=== PATIENT | female | born 1940 | race Caucasian/White ===

== ENCOUNTER 2020-11-07 10:09 | Outpatient (REF) | payer MEDICARE, SELFPAY ==
[2020-11-07 10:46] LABS: MANUAL DIFF FLAG NO
[2020-11-07 11:13] LABS: Basophils Absolute Auto 0.1 X10*3/uL (0.0-0.2); Basophils Percent Auto 1.4 % (0-2); Eosinophils Absolute Auto 0.1 X10*3/uL (0.0-0.4); Eosinophils Percent Auto 2.9 % (0-4); Hematocrit 39.3 % (37-47); Hemoglobin 13.3 g/dl (12.0-16.0); Imm Gran Abs Auto 0.01 X10*3/uL (0.00-0.03); Imm Gran Pct Auto 0.2 % (0.0-0.4); Lymphocytes Absolute Auto 1.6 X10*3/uL (1.2-4.9); Mean Corpuscular HGB Conc 33.8 g/dl (31.0-35.0); Mean Corpuscular Hemoglobin 30.3 pg (27.0-33.0); Mean Corpuscular Volume 89.5 fL (80-98); Mean Platelet Volume 9.6 fL (9.4-12.3); Monocytes Absolute Auto 0.6 X10*3/uL (0.1-1.2); Monocytes Percent Auto 11.9 % (2-11); Neutrophils Absolute Auto 2.5 X10*3/uL (2.0-8.3); Neutrophils Percent Auto 50.6 % (45-73); Platelet Count 244 X10*3/uL (160-400); Red Blood Count 4.39 X10*6/uL (4.20-5.50); Red Cell Distribution Width 12.3 % (11.0-16.0); White Blood Count 4.9 X10*3/uL (4.8-10.8)
[2020-11-07 11:15] LABS: Estimated Average Glucose 134 mg/dL; Hemoglobin A1c % 6.3 %
[2020-11-07 11:23] LABS: Alanine Aminotransferase 15 U/L (0-31); Albumin Level 4.4 g/dL (3.5-5.0); Alkaline Phosphatase 76 U/L (39-117); Anion Gap 13 (12-20); Aspartate Amino Transferase 17 U/L (5-31); Bilirubin Total 1.7 mg/dL (0.0-1.0); Blood Urea Nitrogen 22 mg/dL (9-16); Calcium 10.1 mg/dL (8.4-10.2); Carbon Dioxide 29 mmol/L (22-29); Chloride 97 mmol/L (96-108); Cholesterol 175 mg/dL; Estimated Glomerular Filt Rate > 60; Glucose Fasting 124 mg/dL (60-99); HDL Cholesterol 80 mg/dL; LDL Cholesterol Calculated 82 mg/dl; Potassium 4.8 mmol/L (3.3-5.1); Sodium 134 mmol/L (135-145); Total Protein 6.6 g/dL (6.5-8.0); Triglycerides 69 mg/dL
[2020-11-07 11:41] LABS: Thyroid Stimulating Hormone 2.29 uIU/mL (0.32-4.0)
[2020-11-07 13:59] LABS: Creatinine Urine 69.79 mg/dL
== END 2020-11-07 10:10 | disposition home or self-care (01) ==
LOC: HO.LAB 10:09
PROVIDERS: Visit Provider Physician Assistant
DX: E11.9 Type 2 diabetes mellitus without complications (principal); I10 Essential (primary) hypertension; E03.9 Hypothyroidism, unspecified
CPT/HCPCS: 36415; 80053; 80061; 82043; 83036; 84443; 85025

== ENCOUNTER 2021-11-13 10:02 | Outpatient (REF) | payer MEDICARE, SELFPAY ==
[2021-11-13 10:47] LABS: Hematocrit 39.3 % (37.0-47.0); Hemoglobin 13.5 g/dl (12.0-16.0); Mean Corpuscular HGB Conc 34.4 g/dl (31.0-35.0); Mean Corpuscular Hemoglobin 30.5 pg (27.0-33.0); Mean Corpuscular Volume 88.7 fL (80.0-98.0); Mean Platelet Volume 9.7 fL (9.4-12.3); Platelet Count 272 X10*3/uL (160-400); Red Blood Count 4.43 X10*6/uL (4.20-5.50); Red Cell Distribution Width 12.1 % (11.0-16.0); White Blood Count 5.6 X10*3/uL (4.8-10.8)
[2021-11-13 11:00] LABS: Alanine Aminotransferase 18 U/L (0-31); Albumin Level 4.3 g/dL (3.5-5.0); Alkaline Phosphatase 73 U/L (39-117); Anion Gap 13 (12-20); Aspartate Amino Transferase 18 U/L (5-31); Bilirubin Total 1.4 mg/dL (0.0-1.0); Blood Urea Nitrogen 20 mg/dL (9-16); Carbon Dioxide 27 mmol/L (22-29); Chloride 98 mmol/L (96-108); Cholesterol 181 mg/dL; Estimated Glomerular Filt Rate > 60; Glucose Fasting 155 mg/dL (60-99); HDL Cholesterol 77 mg/dL; LDL Cholesterol Calculated 89 mg/dl; Potassium 4.5 mmol/L (3.3-5.1); Sodium 133 mmol/L (135-145); Total Protein 6.6 g/dL (6.5-8.0); Triglycerides 75 mg/dL
[2021-11-13 11:19] LABS: Estimated Average Glucose 146 mg/dL; Hemoglobin A1c % 6.7 %
[2021-11-13 14:26] LABS: Creatinine Urine 107.06 mg/dL; Microalbum/Creatinine Ratio Ur 7.4 ug/mg cr
== END 2021-11-13 10:03 | disposition home or self-care (01) ==
LOC: HO.LAB 10:02
PROVIDERS: PCP Physician Assistant; Visit Provider Physician Assistant
DX: E03.9 Hypothyroidism, unspecified (principal); E11.9 Type 2 diabetes mellitus without complications; I10 Essential (primary) hypertension
CPT/HCPCS: 36415; 80053; 80061; 82043; 83036; 84443; 85027

== ENCOUNTER 2021-12-18 21:40 | Emergency (ER) | payer MEDICARE, SELFPAY ==
--- NOTE | ~2021-12-18 | XR_ITS ---
EXAMINATION: LEFT SHOULDER, LEFT HUMERUS, LEFT FOREARM CLINICAL INFORMATION: Pain after fall with question of fracture or dislocation COMPARISON: None TECHNIQUE: 3 views left shoulder, 2 views left humerus, 3 views left forearm FINDINGS: Shoulder and humerus: Degenerative changes are present in the shoulder with some sclerosis subchondral cyst formation and joint space narrowing. There is a spiral fracture through the proximal one third of the humerus there is lateral and posterior angulation of the distal fracture fragment. Forearm: The radius and ulna appear normal. No fractures are seen. XR/XR forearm LT 2V IMPRESSION: Acute spiral fracture involving the proximal one third of the left humerus. No other fractures are seen. Degenerative changes present at the left glenohumeral joint
--- NOTE | ~2021-12-18 | CT_ITS ---
EXAMINATION: CT CHEST WITHOUT AND WITH CONTRAST CLINICAL INFORMATION: Incidental collection posterior to the esophagus questioned on CT cervical spine COMPARISON: None TECHNIQUE: Multidetector volumetric CT imaging of the chest was obtained before and after the administration of 65 mL of Omnipaque 350 intravenous contrast without immediate adverse reactions. Axial MIP volume rendering provided. Sagittal and coronal reformatted images were obtained. This CT examination was performed using dose optimization techniques as appropriate, variously including the following: *Automated exposure control *Adjustment of mA and/or kV according to patient size (this includes techniques or standardized protocols for targeted exams where dose is matched to indication/reason for exam; i.e. extremities or head) *Use of iterative reconstruction technique DLP: 543 mGy-cm FINDINGS: LUNGS: No appreciable emphysema. Diffuse mild bronchial thickening without bronchiectasis. There is an irregular branching opacity in the posterior segment of the right upper lobe with surrounding groundglass measuring up to 1.6 cm. There is a 0.8 cm groundglass nodule superior segment of the left lower lobe and a 1.6 cm groundglass nodule within the left upper lobe near the major fissure. There is a 5 mm pleural or subpleural nodule along the left lower lobe. An additional 1.0 cm groundglass nodule is present in the right upper lobe. Central airways are patent. MEDIASTINUM: As seen on the prior CT cervical spine, there is amorphous soft issue density posterior to the esophagus beginning at approximately C7 and extending inferiorly into the superior mediastinum. There is no associated peripheral enhancement. Within the lower cervical spine, this soft tissue is intimately associated with prominent endplate osteophytes at C6-C7. Normal heart size. No pericardial effusion. Triple vessel coronary calcifications. No mediastinal or hilar lymphadenopathy by size criteria. PLEURA: There is no pleural effusion. No pleural mass or thickening. AXILLA: No lymphadenopathy. UPPER ABDOMEN: Unremarkable. OSSEOUS STRUCTURES: Unremarkable. CT/CT chest wo/w con IMPRESSION: * As seen on the prior CT cervical spine, there is amorphous soft tissue density posterior to the lower cervical and upper mediastinal esophagus of unclear etiology. Considerations might include neoplasm such as non-Hodgkin's lymphoma, or chronic scarring, perhaps related to a remote retropharyngeal infection. Alternatively, the finding may originate from the esophagus. It is possible there may be Zenker's diverticulum, or esophageal mass. Recommend esophagram for further evaluation. PET/CT may ultimately be indicated for further evaluation. * Multiple pulmonary nodules, largest being a part solid nodule in the right upper lobe measuring up to 1.6 cm. Appearance is concerning for early neoplasia such as minimally invasive adenocarcinoma. I mention this because there are multiple additional groundglass nodules scattered throughout both lungs, showing an appearance typical for atypical adenomatous hyperplasia. Consider CT-guided lung biopsy of the nodule in the posterior segment of the right upper lobe. Fleischner guidelines were followed.
--- NOTE | ~2021-12-18 | CT_ITS ---
EXAMINATION: CT HEAD WITHOUT CONTRAST CT CERVICAL SPINE WITHOUT CONTRAST CLINICAL INFORMATION: Fall. Mild head and neck pain. COMPARISON: None available. TECHNIQUE: Contiguous axial imaging was performed from the skull base to vertex without intravenous administration of contrast. Contiguous axial imaging was performed from the upper chest through the skull base without intravenous administration of contrast. Coronal and sagittal reformats were obtained at the acquisition workstation. This CT examination was performed using dose optimization techniques as appropriate, variously including the following: *Automated exposure control. *Adjustment of mA and/or kV according to patient size (this includes techniques or standardized protocols for targeted exams where dose is matched to indication/reason for exam; i.e. extremities or head). *Use of iterative reconstruction technique. DLP: 914 mGy-cm FINDINGS: Head: There is no evidence of acute intracranial hemorrhage or edematous territorial infarction. Scattered hypoattenuation in the periventricular and deep white matter are consistent with moderate microangiopathy. Jolley-white matter differentiation is preserved. Proportional prominence of the ventricles and sulcal spaces. No evidence for obstructive hydrocephalus. No abnormal mass effect or midline shift. No extra-axial fluid collections. Moderate subgaleal hematoma along the right aspect of the frontal bone extending into the right paravertebral soft tissues, measuring up to 0.7 cm in depth. No associated osseous abnormalities. No radiopaque foreign bodies. Mild mucosal thickening of the paranasal sinuses. The mastoid air cells and middle ear cavities are clear. Left-sided stapedoplasty. No additional demonstrated abnormalities of the orbits on limited evaluation. Cervical Spine: The atlantooccipital and atlantoaxial articulations remain well aligned. Straightening of the normal cervical lordosis. Mild degenerative anterolisthesis of C3 on C4, C5 on C6, and C6 on C7. Otherwise, there is anatomic alignment of the vertebral bodies and posterior elements. There is fusion of the C4-C5 facets. No evidence of acute fracture or subluxation. The vertebral body heights are maintained. Moderate degenerative disc disease at C3-C4, C4-C5, C6-C7, and C7-T1. Facet and uncovertebral joint arthropathy leads osseous encroachment on the neural foramina from C2-C4 and C5-T1. There is no prevertebral soft tissue swelling. There appears to be a ovoid collection/lesion posterior to the esophagus extending from the level of C6-T2, measuring 2.3 x 1.6 x (at least) 5.1 cm and up to 30 Hounsfield units. This structure extends inferior to the [id number] of this exam. Otherwise, the thyroid gland and remaining cervical soft tissues are normal in appearance. The lung apices demonstrate no abnormalities. CT/CT cervical spine wo con IMPRESSION: 1. No evidence of acute intracranial hemorrhage or edematous territorial infarction. Moderate underlying microangiopathy and generalized cerebral volume loss. 2. No evidence of acute fracture or traumatic subluxation of the cervical spine. Moderate multilevel degenerative spondyloarthropathy of the cervical spine. 3. Right frontal scalp and periorbital hematoma without associated osseous abnormalities. 4. There appears to be an ovoid collection/lesion posterior to the esophagus centered at the thoracic inlet and visualized portions of the upper mediastinum. Recommend further characterization with contrast-enhanced CT of the chest. This critical result was discussed with Dr. Meyer at 23:21 on 12/18/2021 and it was ascertained that the content and urgency of the report was understood at the time of direct communication.
--- NOTE | ~2021-12-18 | XR_ITS ---
EXAMINATION: LEFT SHOULDER, LEFT HUMERUS, LEFT FOREARM CLINICAL INFORMATION: Pain after fall with question of fracture or dislocation COMPARISON: None TECHNIQUE: 3 views left shoulder, 2 views left humerus, 3 views left forearm FINDINGS: Shoulder and humerus: Degenerative changes are present in the shoulder with some sclerosis subchondral cyst formation and joint space narrowing. There is a spiral fracture through the proximal one third of the humerus there is lateral and posterior angulation of the distal fracture fragment. Forearm: The radius and ulna appear normal. No fractures are seen. XR/XR shoulder LT min 2V IMPRESSION: Acute spiral fracture involving the proximal one third of the left humerus. No other fractures are seen. Degenerative changes present at the left glenohumeral joint
--- NOTE | ~2021-12-18 | XR_ITS ---
EXAMINATION: LEFT SHOULDER, LEFT HUMERUS, LEFT FOREARM CLINICAL INFORMATION: Pain after fall with question of fracture or dislocation COMPARISON: None TECHNIQUE: 3 views left shoulder, 2 views left humerus, 3 views left forearm FINDINGS: Shoulder and humerus: Degenerative changes are present in the shoulder with some sclerosis subchondral cyst formation and joint space narrowing. There is a spiral fracture through the proximal one third of the humerus there is lateral and posterior angulation of the distal fracture fragment. Forearm: The radius and ulna appear normal. No fractures are seen. XR/XR humerus LT IMPRESSION: Acute spiral fracture involving the proximal one third of the left humerus. No other fractures are seen. Degenerative changes present at the left glenohumeral joint
[2021-12-18 21:48] VITALS: BP 138/80; BP 221/85; PULSE 78; PULSE 90; RESP 16; TEMP 36.9; O2SAT 100; O2SAT 97; BMI 30.8
[2021-12-18 21:55] LABS: Glucose, Whole Blood 190 mg/dL (60-115)
--- NOTE | 2021-12-18 22:07 | ED_ITS ---
HPI - Fall General Chief Complaint: Fall Stated Complaint: fall possible broken arm Time Seen by Provider: 12/18/21 21:57 Source: patient and EMS Mode of arrival: EMS Limitations: no limitations History of Present Illness HPI Narrative: Patient comes to emergency room complaining of left shoulder pain. Prior to ar ceci, patient states that she was trying to hop picker something from the floor in her closet, patient stepped backwards and there was a boxer IV hydrated. Patient fell backwards, hit her left shoulder in a piece of furniture, then hit her head in the corner of a dresser or a wall. Patient did not lose consciousness. Patient states that the pain in the left shoulder is very severe. EMS gave her 50 mcg of fentanyl, patient overall feeling better. Related Data Previous Rx's Medication Instructions Recorded hydrochlorothiazide 25 mg tablet 25 mg PO DAILY 90 days #90 tabs 04/10/21 levothyroxine 25 mcg tablet 25 mcg PO QAM #90 tabs 07/09/21 metformin 1,000 mg tablet 1,000 mg PO BID #180 tabs 07/09/21 metoprolol succinate 50 mg 50 mg PO DAILY #90 tabs 10/29/21 tablet,extended release 24 hr losartan 25 mg tablet 25 mg PO DAILY 90 days #90 tabs 11/20/21 tramadol 50 mg tablet 50 mg PO Q6H PRN pain #10 tabs 12/19/21 Allergies Allergy/AdvReac Type Severity Reaction Status Date / Time No Known Allergies Allergy Verified 11/20/21 11:38 Review of Systems Review of Systems: Constitutional : No Weight loss, No Fever, No Chills, No Night Sweats, No Fatigue, No Malaise ENT/Mouth : No Hearing loss, No Ear Pain, No Nasal Congestion, No Sinus Pain, No Hoarseness, No sore throat, No Rhinorrhea, No Swallowing Difficulty Eyes: No Eye Pain, No Swelling, No Redness, No Foreign Body, No Discharge, No Vision Changes Cardiovascular : No Chest Pain, No SOB, No Dyspnea on Exertion, No Orthopnea, No Edema, No Palpitations Respiratory : No Cough, No Sputum, No Wheezing, No Smoke Exposure, No Dyspnea Gastrointestinal : No Nausea, No Vomiting, No Diarrhea, No Constipation, No abdominal Pain, No Hematochezia, No Melena Genitourinary : no irregular bleeding, No Dysuria, No Urinary Frequency, No Hematuria, No Urinary Incontinence, No Urgency, No Flank Pain, No Urinary Flow Changes, No Hesitancy Musculoskeletal : Complaining of left shoulder and left humerus pain Skin : Complaining of ecchymosis above the right eye, no bleeding Neuro : No Weakness, No Numbness, No Paresthesias, No Loss of Consciousness, No Dizziness, No Headache Psych : No Anxiety/Panic, No Depression, No SI/HI/AH/VH, No Social Issues, Heme/Lymph: No Bruising, No Bleeding,No Lymphadenopathy Endocrine : No Polyuria, No Polydipsia, No Temperature Intolerance [facility] Past Medical History Surgical History History of total abdominal hysterectomy and bilateral salpingo-oophorectomy Family History Family History Father Medical history unknown Mother Medical history unknown Social History Social History Housing: House Alcohol intake: current Patient Tobacco Use Status: Former Tobacco user Tobacco use type: Cigarette Years Smoked: 7 e-Cigarette/Vaping Use: Never Used Advance Directives: No Advance Directives Information Provided: Yes Current occupational status: retired Cognitive needs: Yes (Pt has a cane and walker at home ) Hearing needs: Yes (Poor hearing loss. ) Vision needs: Yes (reading glasses) Physical Exam Vital Signs: Vital Signs: Last Vital Signs Temp 98.9 F 12/18/21 23:54 Pulse 71 12/19/21 01:12 Resp 16 12/19/21 01:12 BP 154/60 H 12/18/21 23:54 Pulse Ox 99 12/18/21 23:54 O2 Del Method 12/18/21 23:54 BMI result Body Mass Index 30.8 Course Course Course Narrative: Patient does have arrived left-sided humerus spiral fracture. The patient will be provided with a sling. I received a phone call from [facility], incidentally, on the neck CT scan, ovoid collections/lesions posterior to the esophagus were visualized. Contrast enhanced CT scan of the chest recommended. I discussed the CT findings with the patient, patient agreeable to labs and CT scan with contrast I discussed the fracture with Orthopedics, TYRON Akhtar, patient will be provided with a sling. I discussed case management/PT consult with the patient and her . At this time, they need a bit more time to decide. Patient has mild hyponatremia, patient being given IV fluids. Patient has no neurological symptoms. I discussed the chest CT with the patient and her and son. Patient will need follow-up with Gastroenterology and possibly pulmonology. Case Management/Physical therapy were offered. Patient prefers to go home and follow-up with orthopedics. Patient requested a prescription that is less strong and oxycodone. Tramadol has been sent to the patient's pharmacy MDM - Fall Lab Data Result diagrams: 12/19/21 00:04 12/19/21 00:04 Labs: Lab Results 12/18/21 12/19/21 12/19/21 Range/Units 21:50 00:04 00:04 WBC 14.0 H (4.8-10.8) X10*3/uL RBC 3.73 L (4.20-5.50) X10*6/uL Hgb 11.6 L (12.0-16.0) g/dl Hct 33.2 L (37.0-47.0) % MCV 89.0 (80.0-98.0) fL MCH 31.1 (27.0-33.0) pg MCHC 34.9 (31.0-35.0) g/dl RDW 12.1 (11.0-16.0) % Plt Count 225 (160-400) X10*3/uL MPV 9.3 L (9.4-12.3) fL Immature Gran % (Auto) 0.5 H (0.0-0.4) % Neut % (Auto) 83.9 H (45-73) % Lymph % (Auto) 7.9 L (20-40) % [place] % (Auto) 6.9 (2-11) % Eos % (Auto) 0.4 (0-4) % Baso % (Auto) 0.4 (0-2) % Lymph # (Auto) 1.1 L (1.2-4.9) X10*3/uL [place] # (Auto) 1.0 (0.1-1.2) X10*3/uL Eos # (Auto) 0.1 (0.0-0.4) X10*3/uL Baso # (Auto) 0.1 (0.0-0.2) X10*3/uL Abs Immat Gran (auto) 0.07 H (0.00-0.03) X10*3/uL Absolute Neuts (auto) 11.7 H (2.0-8.3) x10*3/uL Absolute Nucleated RBC 0.000 (0.0-0.012) X10*3/uL Nucleated RBC % (auto) 0.0 (0.0-0.2) /100WBC Sodium 129 L (135-145) mmol/L Potassium 4.2 (3.3-5.1) mmol/L Chloride 96 (96-108) mmol/L Carbon Dioxide 23 (22-29) mmol/L Anion Gap 14 (12-20) BUN 28 H (9-16) mg/dL Creatinine 0.94 (0.5-1.4) mg/dL Estim Creat Clear Calc 45.1 Estimated GFR 57 POC Glucose 190 H (60-115) mg/dL Random Glucose 244 H (60-115) mg/dL Calcium 9.2 D (8.4-10.2) mg/dL Total Bilirubin 1.0 (0.0-1.0) mg/dL Direct Bilirubin 0.4 (0.0-0.5) mg/dL AST 21 (5-31) U/L ALT 19 (0-31) U/L Alkaline Phosphatase 79 (39-117) U/L Total Protein 6.1 L (6.5-8.0) g/dL Albumin 4.1 (3.5-5.0) g/dL Discharge Plan Discharge Clinical Impression: Proximal humeral fracture Patient Disposition: Home, Self-Care Instructions: Arm Fracture in Adults (ED) Additional Instructions: Your CT scan of the chest shows a soft tissue density around your upper esophagus, etiology is unclear. Also, multiple pulmonary nodules were seen, unclear etiology. Please follow-up with your primary care physician tomorrow, you may need to be referred to Gastroenterology or pulmonology. . If you have any worsening or new symptoms, please return to the emergency room or call 911 Prescriptions: New tramadol 50 mg tablet 50 mg PO Q6H PRN (Reason: pain) Qty: 10 0RF No Action hydrochlorothiazide 25 mg tablet 25 mg PO DAILY 90 Days Qty: 90 2RF levothyroxine 25 mcg tablet 25 mcg PO QAM Qty: 90 1RF metformin 1,000 mg tablet 1,000 mg PO BID Qty: 180 1RF metoprolol succinate 50 mg tablet extended release 24 hr 50 mg PO DAILY Qty: 90 0RF losartan 25 mg tablet 25 mg PO DAILY 90 Days Qty: 90 1RF Referrals: Jamar Akhtar PA-C [Physician Front End Technician] - 1 day (Left humeral fracture)
[2021-12-18 22:50] VITALS: BP 152/92; PULSE 65; RESP 16; TEMP 37.1; O2SAT 98
[2021-12-18 23:54] VITALS: BP 154/60; PULSE 70; RESP 16; TEMP 37.2; O2SAT 99
[2021-12-19] MEDS: oxyCODONE HCl Immed Release 5 MG TABLET PO (00:01)
[2021-12-19 00:11] LABS: MANUAL DIFF FLAG NO
[2021-12-19 00:14] LABS: Basophils Absolute Auto 0.1 X10*3/uL (0.0-0.2); Basophils Percent Auto 0.4 % (0-2); Eosinophils Absolute Auto 0.1 X10*3/uL (0.0-0.4); Eosinophils Percent Auto 0.4 % (0-4); Hematocrit 33.2 % (37.0-47.0); Hemoglobin 11.6 g/dl (12.0-16.0); Imm Gran Abs Auto 0.07 X10*3/uL (0.00-0.03); Imm Gran Pct Auto 0.5 % (0.0-0.4); Lymphocytes Absolute Auto 1.1 X10*3/uL (1.2-4.9); Lymphocytes Percent Auto 7.9 % (20-40); Mean Corpuscular HGB Conc 34.9 g/dl (31.0-35.0); Mean Corpuscular Hemoglobin 31.1 pg (27.0-33.0); Mean Platelet Volume 9.3 fL (9.4-12.3); Monocytes Percent Auto 6.9 % (2-11); Neutrophils Absolute Auto 11.7 x10*3/uL (2.0-8.3); Neutrophils Percent Auto 83.9 % (45-73); Platelet Count 225 X10*3/uL (160-400); Red Blood Count 3.73 X10*6/uL (4.20-5.50); Red Cell Distribution Width 12.1 % (11.0-16.0)
[2021-12-19 00:30] LABS: Alanine Aminotransferase 19 U/L (0-31); Albumin Level 4.1 g/dL (3.5-5.0); Alkaline Phosphatase 79 U/L (39-117); Anion Gap 14 (12-20); Aspartate Amino Transferase 21 U/L (5-31); Bilirubin Direct 0.4 mg/dL (0.0-0.5); Blood Urea Nitrogen 28 mg/dL (9-16); Calcium 9.2 mg/dL (8.4-10.2); Carbon Dioxide 23 mmol/L (22-29); Chloride 96 mmol/L (96-108); Creatinine Clr Calc Pharmacy 45.1; Estimated Glomerular Filt Rate 57; Glucose Random 244 mg/dL (60-115); Potassium 4.2 mmol/L (3.3-5.1); Sodium 129 mmol/L (135-145); Total Protein 6.1 g/dL (6.5-8.0)
[2021-12-19] MEDS: iohexoL 300 MG/ML 100 ML INFUS..BTL 65 ML IV (01:04)
[2021-12-19] MEDS: 0.9 % Sodium Chloride 1,000 ML 999 ML IVCONT (01:10)
[2021-12-19 01:12] VITALS: PULSE 71; RESP 16
[2021-12-19 02:00] VITALS: BP 133/48; PULSE 66; RESP 16; TEMP 37.1; O2SAT 98
== END 2021-12-19 02:15 | disposition home or self-care (01) ==
PROVIDERS: Emergency Provider Emergency Medicine; PCP Physician Assistant
DX: S42.202A Unspecified fracture of upper end of left humerus, initial encounter for closed fracture (principal); E87.1 Hypo-osmolality and hyponatremia; R51.9 Headache, unspecified; M54.2 Cervicalgia; R93.89 Abnormal findings on diagnostic imaging of other specified body structures; W01.190A Fall on same level from slipping, tripping and stumbling with subsequent striking against furniture, initial encounter; Y93.9 Activity, unspecified; Y92.9 Unspecified place or not applicable; Y99.9 Unspecified external cause status
CPT/HCPCS: 36415; 70450; 71270; 72125; 73030; 73060; 73090; 80048; 80076; 82947; 85025; 96360; 99283; 99284; Q9967

== ENCOUNTER 2021-12-27 07:28 | Outpatient (REF) | payer MEDICARE, SELFPAY ==
--- NOTE | ~2021-12-27 | XR_ITS ---
EXAMINATION: XR HUMERUS, LEFT CLINICAL INFORMATION: Fracture shaft of humerus. Pain COMPARISON: 12/18/2021 left humerus. TECHNIQUE: AP and lateral views of the left humerus. FINDINGS: Undisplaced spiral fracture mid humerus. The displacement has improved since the last exam. No additional bony abnormality is seen. XR/XR humerus LT IMPRESSION: Some 1 to normal alignment of spinal fracture left mid humerus compared to previous study 12/18/2021.
== END 2021-12-27 07:29 | disposition home or self-care (01) ==
LOC: HO.HOSX 07:28
PROVIDERS: Visit Provider Physician Assistant
DX: S42.302A Unspecified fracture of shaft of humerus, left arm, initial encounter for closed fracture (principal)
CPT/HCPCS: 73060; 99202

== ENCOUNTER 2022-01-23 08:54 | Outpatient (REF) | payer MEDICARE, SELFPAY ==
--- NOTE | ~2022-01-23 | XR_ITS ---
EXAMINATION: XR HUMERUS, LEFT CLINICAL INFORMATION: Follow-up fracture. COMPARISON: Prior radiographs, most recently 12/27/2021. TECHNIQUE: AP and lateral views of the left humerus. FINDINGS: There is bony demineralization. There is a mildly displaced oblique fracture of the proximal to mid shaft of the left humerus, with approximately one quarter shaft width of medial displacement of the distal fracture fragment. There is minimal apex lateral angulation at the fracture site. There is good periosteal callus formation. No foreign body is seen. XR/XR humerus LT IMPRESSION: There is increased displacement and lateral angulation and oblique fracture of the proximal left humerus. There is good periosteal callus formation.
== END 2022-01-23 08:55 | disposition home or self-care (01) ==
LOC: HO.HOSX 08:54
PROVIDERS: Visit Provider Physician Assistant
DX: S42.302A Unspecified fracture of shaft of humerus, left arm, initial encounter for closed fracture (principal)
CPT/HCPCS: 73060; 99212

== ENCOUNTER 2022-02-27 08:40 | Outpatient (REF) | payer MEDICARE, SELFPAY ==
--- NOTE | ~2022-02-27 | XR_ITS ---
EXAMINATION: XR HUMERUS, LEFT CLINICAL INFORMATION: Fracture COMPARISON: Previous x-ray most recent 01/23/2022 TECHNIQUE: AP and lateral views of the left humerus. FINDINGS: There is an oblique minimally displaced fracture of the proximal shaft of the left humerus. Alignment appears unchanged. Fracture line is still seen. There is some increasing bony callus formation adjacent to the fracture. Joint spaces are normal. Soft tissues are normal. XR/XR humerus LT IMPRESSION: Healing left humeral shaft fracture.
== END 2022-02-27 08:41 | disposition home or self-care (01) ==
LOC: HO.HOSX 08:40
PROVIDERS: Visit Provider Physician Assistant
DX: S42.302D Unspecified fracture of shaft of humerus, left arm, subsequent encounter for fracture with routine healing (principal); X58.XXXD Exposure to other specified factors, subsequent encounter
CPT/HCPCS: 73060; 99212

== ENCOUNTER 2022-03-31 14:00 | Outpatient (RCR) | payer MEDICARE, SELFPAY ==
[2022-02-18 12:56] VITALS: BP 215/88; PULSE 78; O2SAT 100
--- NOTE | 2022-02-18 15:01 | MHC.PT.EP ---
[facility] [place] Office [place] Office [place] Office [address] Yoselin Penaloza [address] [phone] F: [phone] F: [phone] F: [phone] F: [phone] Physical Therapy Plan of Care Date of Evaluation: Date of Surgery: Diagnosis: FX LEFT HUMERUS- PT FOR GENTLE ROM Assessment: 81 YO FEMALE REF TO PT W H/O Lt HUMERAL SPIRAL FX SUSTAINED 12/18/21 AFTER SUFFERING A TRIP/FALL AT HOME. SHE IS Rt HAND DOMINANT AND RESIDES W HER SPOUSE. SHE HAS A LEFT HUMERAL BRACE/CUFF. Pt HAS LIMITED AROM/ ROM LEFT SH, GEN DECR STRENGTH IN Lt SH GIRDLE POST FX/ IMMOB, MILD PAIN IN LEFT PROX 1/3 HUMERUS, AND DECR ADL TOLERANCE. Pt WOULD BENEFIT FROM PT TO ADDRESS THE ABOVE FINDINGS AND DEV A PROGR HEP/ SELF-SX MGMT PROGRAM, AND GUIDE HER IN GRADUAL RETURN TO REG ADLs. Frequency and Duration: The patient will be seen 1 x WK x 6 WKS Short Term Goals: *INCREASE Pt'S LEFT SH AROM *INITIATE HEP FOR Lt SH GENTLE ROM *Pt'S Lt SH PAIN 2-3/10 AT MAX W ADLs *PT INDEP POSTURAL SELF- CORRECTION Pan Dumper Goals: *Pt DEMON WFL AROM Lt SH *Pt DEMON WFL STRENGTH IN Lt PROX UE AND Lt SCAP STAB (ONCE CLEARED BY ORTHO FOR STRENGTH) *Pt RESUME REG ADLs W Lt UE Treatment Plan: Modalities to reduce pain, spasms and effusion. Manual therapy to restore motion and function. Therapeutic exercise to improve strength and flexibility. Neuromuscular re-education for posture and balance. Therapeutic activities to return to functional activities of daily living. Electronically signed by: Allie Rios,PT Please sign and return to therapist. Thank you for your referral.
--- NOTE | 2022-04-24 14:37 | MHC.PT.DC ---
[facility] [place] Office [place] Office [place] Office [address] Yoselin Penaloza [address] [phone] F: [phone] F: [phone] F: [phone] F: [phone] Physical Therapy Discharge Report Diagnosis: FX LEFT HUMERUS- PT FOR GENTLE ROM Date of Surgery: Date of Evaluation: 02/18/22 Date of Discharge: 03/31/22 Treatments to Date: 7 Cancellations to Date: No Shows to Date: Discharge Status: Achieved Goals Improved Function Independent with HEP Discharge Summary: Pt PROGR VERY WELL, SHE HAS RESUMED HER REGULAR ADLs AND PERF PROGRESSIVE THER EXER W/O PAIN OR SXS IN LEFT PROXIMAL UE. Pt HAS MET HER PT GOALS AND SHE IS PLEASED W HER PROGRESS , EVIDENT W HER IMPROVED SPADI SCORE. Electronically signed by: Allie Rios,PT Please sign and return to therapist. Thank you for your referral.
== END 2022-04-24 14:39 | disposition home or self-care (01) ==
LOC: HO.PT 14:00
PROVIDERS: PCP Physician Assistant; Visit Provider Physician Assistant
DX: S42.302A Unspecified fracture of shaft of humerus, left arm, initial encounter for closed fracture (principal)
CPT/HCPCS: 97110; 97140; 97162

== ENCOUNTER 2022-11-19 10:24 | Outpatient (REF) | payer MEDICARE, SELFPAY ==
[2022-11-19 11:09] LABS: Hematocrit 43.2 % (37.0-47.0); Hemoglobin 14.8 g/dl (12.0-16.0); Mean Corpuscular HGB Conc 34.3 g/dl (31.0-35.0); Mean Corpuscular Volume 87.6 fL (80.0-98.0); Mean Platelet Volume 9.6 fL (9.4-12.3); Platelet Count 313 X10*3/uL (160-400); Red Blood Count 4.93 X10*6/uL (4.20-5.50); Red Cell Distribution Width 12.3 % (11.0-16.0); White Blood Count 8.8 X10*3/uL (4.8-10.8)
[2022-11-19 11:25] LABS: Estimated Average Glucose 157 mg/dL; Hemoglobin A1c % 7.1 %
[2022-11-19 12:15] LABS: Alanine Aminotransferase 25 U/L (0-31); Albumin Level 4.5 g/dL (3.5-5.0); Alkaline Phosphatase 85 U/L (39-117); Anion Gap 15 (12-20); Aspartate Amino Transferase 15 U/L (5-31); Bilirubin Total 2.7 mg/dL (0.0-1.0); Blood Urea Nitrogen 24 mg/dL (9-16); Carbon Dioxide 26 mmol/L (22-29); Chloride 97 mmol/L (96-108); Cholesterol 171 mg/dL; Estimated Glomerular Filt Rate 55; Glucose Fasting 189 mg/dL (60-99); HDL Cholesterol 82 mg/dL; LDL Cholesterol Calculated 68 mg/dl; Potassium 4.8 mmol/L (3.3-5.1); Sodium 133 mmol/L (135-145); Total Protein 6.7 g/dL (6.5-8.0); Triglycerides 108 mg/dL
[2022-11-19 12:56] LABS: TSH reflex Free T4 3.26 uIU/mL (0.32-4.0)
[2022-11-19 18:14] LABS: Creatinine Urine 124.08 mg/dL; Microalbum/Creatinine Ratio Ur 20.9 ug/mg cr
== END 2022-11-19 10:25 | disposition home or self-care (01) ==
LOC: HO.LAB 10:24
PROVIDERS: PCP Physician Assistant; Visit Provider Physician Assistant
DX: I10 Essential (primary) hypertension (principal); E11.9 Type 2 diabetes mellitus without complications
CPT/HCPCS: 36415; 80053; 80061; 82043; 83036; 84443; 85027

== ENCOUNTER 2023-05-05 10:46 | Outpatient (AMB) | payer MEDICARE, SELFPAY ==
[2023-05-05 10:48] VITALS: BP 176/94; PULSE 75; O2SAT 100
--- NOTE | 2023-05-05 10:48 | MHC.PC.OV ---
Vital Signs 05/05/23 10:48 Height 5 ft Weight 16 lb BMI 3.1 BP 176/94 H Blood Pressure Location Lt brachial Position Sitting Pulse 75 Pulse Source Pulse Oximeter Pulse Oximetry (%) 100 Oxygen Delivery Method Room Air Intake Visit Reasons: R eye cataract surgery-05/20 Dry Plasterer Required: No Accompanied by: Self / Same As Patient Allergies tramadol Allergy (Intermediate, Verified 05/05/23 10:48) Gastrointestinal Upset Medication List - Last Reconciled 05/05/23 by Aries Flowers MD codeine-guaifenesin 10-100 mg/5 mL 5 mL PO Q6H PRN 5 days hydrochlorothiazide 25 mg PO DAILY 90 days ketorolac 0.5% 1 drp ophthalmic (eye) QID levothyroxine 25 mcg PO QAM losartan 25 mg PO DAILY 90 days metformin 1,000 mg PO BID metoprolol succinate ER 50 mg PO DAILY vitamins A,C,H-wvqs-hppmea 2,148 mcg-113 mg-45 mg-17.4mg (PreserVision AREDS) 2 tabs PO BID Tobacco use date assessed: 11/26/22 Fall risk assessment: No Falls in past year Last assessed Fall Risk: 05/05/23 Dental Screening Dental Screen Date: 05/05/23 Did you have a dental visit in the last 12 months?: Yes Did you have a dental problem in the last 6 months where you did not have access to dental care?: No Was dental information given to patient?: Patient has dentist HPI R eye cataract surgery-05/20 HPI Details having bilat cataract repairs; has DM HTN and hypothyroidism; no history of CAD PFSH Medical History Fracture of shaft of left humerus Pulmonary nodule 1 cm or greater in diameter Herpes zoster Surgical History History of total abdominal hysterectomy and bilateral salpingo-oophorectomy Family History Father Medical history unknown Mother Medical history unknown Social History Housing: House Alcohol intake: current Patient Tobacco Use Status: Former Tobacco user Tobacco use type: Cigarette Years Smoked: 7 e-Cigarette/Vaping Use: Never Used Second Hand Smoke Exposure: No service: No Current occupational status: retired Current occupation: rt hand Cognitive needs: Yes (Pt has a cane and walker at home ) Hearing needs: Yes (Poor hearing loss. ) Vision needs: Yes (reading glasses) Questionnaire Thrive Questionnaire Date Thrive assessed: 11/26/22 AUDIT C Alcohol Use Questionnaire (AUDIT-C) 1. How often do you have a drink containing alcohol?: Never 3. How often do you have six or more drinks on one occasion?: Never Total Score: 0 EMERY-7 AMB Questionnaire EMERY-7 Date EMERY - 7 assessed: 05/05/23 Feeling nervous, anxious, or on edge: 0 = Not at all Not being able to stop or control worryin = Not at all Worrying too much about different things: 0 = Not at all Trouble relaxin = Not at all Being so restless that it is hard to sit still: 0 = Not at all Becoming easily annoyed or irritable: 0 = Not at all Feeling afraid as if something awful might happen: 0 = Not at all Total EMERY-7 score (0-4 normal; 5-9 mild; 10-14 moderate; 15-21 severe): 0 Source: Developed by Drs. Rojelio Fontanez, Nancy León, Brendan Medina and colleagues, with an educational nelly from [employer]. Review of Systems Const Denies chills, Denies fatigue, Denies headache(s) and Denies weight loss Eyes Denies change in vision, Denies diplopia and Denies eye pain ENT Denies vertigo, Denies dizziness, Denies headache(s) and Denies nasal discharge Card Denies chest pain, Denies rapid heart rate and Denies dyspnea on exertion Resp Denies chest congestion, Denies cough, Denies pain with cough and Denies dyspnea on exertion GI Denies abdominal pain, Denies hematochezia and Denies change in bowel habits Musc Denies myalgias, Denies arthralgias and Denies joint swelling Skin/Breast Denies lesions and Denies unusual bruising Neuro Denies vertigo, Denies dizziness, Denies headache(s) and Denies focal weakness Endo Denies fatigue Physical exam (Primary Care) Vital Signs: Last Vital Signs Pulse 75 05/05/23 10:48 BP 176/94 H 05/05/23 10:48 Pulse Ox 100 05/05/23 10:48 Oxygen Delivery Method Room Air 05/05/23 10:48 BMI result Body Mass Index 3.1 Tobacco/Smoking Status: Tobacco use Status Tobacco use date assessed 11/26/22 05/05/23 10:49 Patient Tobacco Use Status Former Tobacco user 05/05/23 10:49 Tobacco use type Cigarette 05/05/23 10:49 e-Cigarette/Vaping Use Never Used 05/05/23 10:49 Thrive Assessment: Date of Thrive Assessment Date Thrive assessed 11/26/22 05/05/23 10:49 Const General: cooperative, healthy appearing and no acute distress Orientation/consciousness: oriented to person, oriented to place and oriented to time HENMT Head: Yes normal to inspection, Yes normocephalic and Yes atraumatic Mouth: Normal oral and palatal mucosa present and tongue normal Throat: Yes posterior oropharynx normal and Yes uvula midline Eyes General: appearance normal, both eyes and all related structures Neck Neck: Yes normal visual inspection, Yes full ROM and Yes no lymphadenopathy Thyroid: Thyroid normal Carotids: normal carotid upstroke Chest Chest palpation & inspection: normal inspection of the chest Resp Effort & Inspection: normal respiratory effort and able to speak in complete sentences Auscultation: clear to auscultation bilaterally Cardio Jugular venous distension: no JVD Palpation: normal PMI Rate: regular rate Rhythm: regular rhythm Heart sounds: S1 normal heart sound present and S2 normal heart sound present GI Inspection: Yes normal to inspection Palpation (GI): Soft to palpation and No hepatosplenomegaly present Auscultation: normal bowel sounds General: Yes no CVA tenderness Back/Spine/Pelvis Back: no CVA tenderness Skin General skin exam: no rashes or lesions noted Neuro General: oriented to person, oriented to place and oriented to time Extrem General: Yes normal to inspection and Yes full ROM Assessment and Plan Assessment & Plan (1) Type 2 diabetes mellitus: Code(s): E11.9 - Type 2 diabetes mellitus without complications Qualifiers: Diabetes mellitus complication status: with hyperglycemia Diabetes mellitus assistant terminal manager insulin use: without assistant terminal manager use Qualified Code(s): E11.65 - Type 2 diabetes mellitus with hyperglycemia Plan: stable; (2) Pre-op exam: Code(s): Z01.818 - Encounter for other preprocedural examination Plan: low risk of cardiovascular complications; cleared for surgery (3) Hypothyroidism: Code(s): E03.9 - Hypothyroidism, unspecified Qualifiers: Hypothyroidism type: unspecified Qualified Code(s): E03.9 - Hypothyroidism, unspecified Plan: stable; same rx (4) HTN (hypertension): Code(s): I10 - Essential (primary) hypertension Qualifiers: Hypertension type: essential hypertension Qualified Code(s): I10 - Essential (primary) hypertension Plan: stable Orders: Orders AMB Hemoglobin A1c Today E11.9 - Type 2 diabetes mellitus without complications Coding Level of Care Code Est Pt Level 4 (73479) Diagnoses Type 2 diabetes mellitus with hyperglycemia, without long-term current use of insulin E11.65 Diabetes mellitus complication status: with hyperglycemia Diabetes mellitus mcc insulin use: without assistant terminal manager use Pre-op exam Z01.818 Hypothyroidism, unspecified type E03.9 Hypothyroidism type: unspecified Essential hypertension I10 Hypertension type: essential hypertension
== END 2023-05-05 11:57 | disposition home or self-care (01) ==
PROVIDERS: PCP Physician Assistant; Visit Provider Internal Medicine
DX: E11.65 Type 2 diabetes mellitus with hyperglycemia (principal); Z01.818 Encounter for other preprocedural examination; E03.9 Hypothyroidism, unspecified; I10 Essential (primary) hypertension
CPT/HCPCS: 99214

== ENCOUNTER 2023-11-24 11:31 | Outpatient (REF) | payer MEDICARE, SELFPAY ==
[2023-11-24 12:31] LABS: Hematocrit 38.7 % (37.0-47.0); Hemoglobin 13.2 g/dl (12.0-16.0); Mean Corpuscular HGB Conc 34.1 g/dl (31.0-35.0); Mean Corpuscular Hemoglobin 30.4 pg (27.0-33.0); Mean Corpuscular Volume 89.2 fL (80.0-98.0); Mean Platelet Volume 9.8 fL (9.4-12.3); Platelet Count 279 X10*3/uL (160-400); Red Blood Count 4.34 X10*6/uL (4.20-5.50); Red Cell Distribution Width 12.7 % (11.0-16.0); White Blood Count 6.8 X10*3/uL (4.8-10.8)
[2023-11-24 12:37] LABS: Estimated Average Glucose 160 mg/dL; Hemoglobin A1c % 7.2 % (<6.0)
[2023-11-24 13:48] LABS: Alanine Aminotransferase 12 U/L (0-31); Albumin Level 4.3 g/dL (3.5-5.0); Alkaline Phosphatase 77 U/L (39-117); Anion Gap 17 (12-20); Aspartate Amino Transferase 15 U/L (5-31); Bilirubin Total 1.4 mg/dL (0.0-1.0); Blood Urea Nitrogen 20 mg/dL (9-16); Calcium 9.9 mg/dL (8.4-10.2); Carbon Dioxide 24 mmol/L (22-29); Chloride 100 mmol/L (96-108); Cholesterol 162 mg/dL (<200); Estimated Glomerular Filt Rate 57; Glucose Fasting 131 mg/dL (60-99); HDL Cholesterol 77 mg/dL (>40); LDL Cholesterol Calculated 71 mg/dL (<100); Potassium 4.7 mmol/L (3.3-5.1); Sodium 136 mmol/L (135-145); Total Protein 6.7 g/dL (6.5-8.0); Triglycerides 72 mg/dL (<150)
== END 2023-11-24 11:32 | disposition home or self-care (01) ==
LOC: HO.LAB 11:31
PROVIDERS: PCP Physician Assistant; Visit Provider Physician Assistant
DX: I10 Essential (primary) hypertension (principal); E03.9 Hypothyroidism, unspecified; E11.65 Type 2 diabetes mellitus with hyperglycemia
CPT/HCPCS: 36415; 80053; 80061; 83036; 84443; 85027

== ENCOUNTER 2023-12-01 10:33 | Outpatient (AMB) | payer MEDICARE, SELFPAY ==
[2023-12-01 10:38] VITALS: BP 182/72; PULSE 80; O2SAT 99; BMI 33.1
--- NOTE | 2023-12-01 10:38 | MHC.PC.OV ---
Vital Signs 12/01/23 10:38 Height 5 ft Weight 169 lb 4 oz BMI 33.1 BP 182/72 H Blood Pressure Location Lt brachial Position Sitting Pulse 80 Pulse Source Pulse Oximeter Pulse Oximetry (%) 99 Oxygen Delivery Method Room Air Intake Visit Reasons: pe [employer] Associate Required: No Accompanied by: Spouse Allergies tramadol Allergy (Intermediate, Verified 12/01/23 10:52) Gastrointestinal Upset Medication List - Last Reconciled 12/01/23 by Senthil Isaac PA-C codeine-guaifenesin 10-100 mg/5 mL 5 mL PO Q6H PRN 5 days hydrochlorothiazide 25 mg PO DAILY 90 days ketorolac 0.5% 1 drp ophthalmic (eye) QID levothyroxine 25 mcg PO QAM losartan 25 mg PO DAILY 90 days metformin 1,000 mg PO BID metoprolol succinate ER 50 mg PO DAILY vitamins A,C,M-izyd-wydohi 2,148 mcg-113 mg-45 mg-17.4mg (PreserVision AREDS) 2 tabs PO BID Tobacco use date assessed: 12/01/23 Fall risk assessment: No Falls in past year Last assessed Fall Risk: 12/01/23 Dental Screening Dental Screen Date: 05/05/23 HPI pe HPI Details Deb is a 83 y/o F here today for an annual physical . . Pateint has a pmhx significant for Hypothyroidism, HLD, HTN, DMII. ? .. ? HTN: Patient does not monitor her BP at home though is compliant with medications.? Blood pressure in office today elevated should has been an existing finding for her in the office. She reports that home blood pressures are much better. She does have white coat hypertension Otherwise? denies any CP, SOB, headaches or dizziness. ? .. ? Hypothyroid: HAs been complaint with medication, clinically and chemicaly euthyroid. ? .. ? DMII: Doesn't check Blood sugars, Deneis any hyperglycemic symptoms. Fasting blood sugars have improved? ? Most recent A1c at 7.2 Will continue on current dose of metformin and will work on diabetic diet Vaccine: Up-to-date with COVID vaccine, considering tetanus and shingles vaccine, needs PCV-20- though still considering Laboratory Tests 11/19/22 11/24/23 10:35 11:43 RBC 4.34 Creatinine 0.94 Fasting Glucose 189 H 131 H Hemoglobin A1c % 7.1 7.2 H Cholesterol 171 162 [facility] Medical History Fracture of shaft of left humerus Pulmonary nodule 1 cm or greater in diameter Herpes zoster Surgical History History of total abdominal hysterectomy and bilateral salpingo-oophorectomy Family History Father Medical history unknown Mother Medical history unknown Social History (Updated 12/01/23 @ 10:58 by Senthil Isaac PA-C) Housing: House Alcohol intake: current Alcohol intake frequency: 0-2 drinks per day Alcohol type: wine Patient Tobacco Use Status: Former Tobacco user Quit Date: 1961 Tobacco use type: Cigarette Years Smoked: 7 e-Cigarette/Vaping Use: Never Used Second Hand Smoke Exposure: No service: No Current occupational status: retired Current occupation: rt hand Cognitive needs: Yes (Pt has a cane and walker at home ) Hearing needs: Yes (Poor hearing loss. ) Vision needs: Yes (reading glasses) Questionnaire PHQ-9 Over the last 2 weeks, how often have you been bothered by any of the following problems? 1. Little interest or pleasure in doing things: not at all 2. Feeling down, depressed, or hopeless: not at all 3. Trouble falling or staying asleep, or sleeping too much: not at all 4. Feeling tired or having little energy: not at all 5. Poor appetite or overeating: not at all 6. Feeling bad about yourself - or that you are a failure or have let yourself or your family down: not at all 7. Trouble concentrating on things, such as reading the newspaper or watching television: not at all 8. Moving or speaking so slowly that other people could have noticed. Or the opposite - being so fidgety or restless that you have been moving around a lot more than usual: not at all 9. Thoughts that you would be better off or of hurting yourself in some way: not at all Total score: 0 Depression Screening Interpretation: Negative Depression Screening Done: Yes 51040 - PHQ-9 Billing: Yes Source: Developed by Nancy Amin Kurt Kroenke and colleagues, with an educational nelly from [employer] Thrive Questionnaire Date Thrive assessed: 12/01/23 I am a: Patient What is your living situation today?: I have a steady place to live Within the past 12 months, did the food you bought not last and you didn't have the money to get more?: Never true Within the past 12 months, did you worry whether your food would run out before you got money to buy more?: Never true Do you have trouble paying for medicines?: No Do you have trouble getting transportation to medical appointments?: No Do you have trouble paying your heating and electricity bill?: No Do you have trouble taking care of your child, family member or friend?: No Do you have trouble with day-to-day activities such as bathing, preparing meals, shopping, managing finances, etc.?: No Are you currently unemployed and looking for a job?: No Are you interested in more education?: No Please select the resources that you would like help with: None Currently or been in a relationship where the following occur: no concerns reported THRIVE Score: 0 AUDIT C Alcohol Use Questionnaire (AUDIT-C) 1. How often do you have a drink containing alcohol?: Never 3. How often do you have six or more drinks on one occasion?: Never Total Score: 0 EMERY-7 AMB Questionnaire EMERY-7 Date EMERY - 7 assessed: 12/01/23 Feeling nervous, anxious, or on edge: 0 = Not at all Not being able to stop or control worryin = Not at all Worrying too much about different things: 0 = Not at all Trouble relaxin = Not at all Being so restless that it is hard to sit still: 0 = Not at all Becoming easily annoyed or irritable: 0 = Not at all Feeling afraid as if something awful might happen: 0 = Not at all Total EMERY-7 score (0-4 normal; 5-9 mild; 10-14 moderate; 15-21 severe): 0 Source: Developed by Nancy Amin Kurt Kroenke and colleagues, with an educational nelly from [employer] EMERY-7 Assessment Billing EMERY-7 Assessment Tool: EMERY-7 Assessment 55776 Review of Systems Const Denies body aches, Denies chills, Denies excessive sweating, Denies fatigue, Denies fever(s) and Denies headache(s) Eyes Denies blurry vision ENT Denies dysphagia, Denies vertigo, Denies dizziness, Denies headache(s), Denies hearing loss and Denies tinnitus Card Denies chest pain, Denies chest pain with activity, Denies syncope, Denies irregular heart rhythm and Denies dyspnea Resp Denies chest congestion, Denies cough, Denies hemoptysis, Denies dyspnea and Denies wheezing GI Denies abdominal pain, Denies melena, Denies hematochezia, Denies coffee ground emesis, Denies dysphagia, Denies diarrhea, Denies nausea and Denies vomiting Denies urinary frequency, Denies dysuria, Denies urinary hesitancy and Denies urinary urgency Musc Denies arthralgias, Denies limited range of motion, Denies muscle cramps and Denies muscle weakness Skin/Breast Denies rash and Denies skin ulcer Neuro Denies Abnormal speech present, Denies confusion, Denies vertigo, Denies dizziness, Denies syncope, Denies headache(s), Denies memory loss and Denies seizure-like activity Psych Denies anxiety, Denies confusion, Denies depression, Denies memory loss, Denies panic attacks and Denies paranoia Endo Denies excessive sweating, Denies fatigue, Denies flushing, Denies polydipsia and Denies polyuria Aller/Immun Denies wheezing Physical exam (Primary Care) Vital Signs: Last Vital Signs Pulse 80 12/01/23 10:38 BP 182/72 H 12/01/23 10:38 Pulse Ox 99 12/01/23 10:38 Oxygen Delivery Method Room Air 12/01/23 10:38 BMI result Body Mass Index 33.1 Tobacco/Smoking Status: Tobacco use Status Tobacco use date assessed 12/01/23 12/01/23 10:42 Patient Tobacco Use Status Former Tobacco user 12/01/23 10:42 Tobacco use type Cigarette 12/01/23 10:42 e-Cigarette/Vaping Use Never Used 12/01/23 10:42 PHQ-9: PHQ-9 Score PHQ-9: Total score 0 12/01/23 10:42 Depression Screening Interpretation: Negative Thrive Assessment: Date of Thrive Assessment Date Thrive assessed 12/01/23 12/01/23 10:42 Currently or been in a relationship where the following occur: no concerns reported Const General: cooperative, comfortable, no acute distress, alert and awake; No confusion Orientation/consciousness: oriented to person, oriented to place, patient oriented x3 and No confusion HENMT Head: Yes normocephalic Ears: external ears normal and TM's normal bilaterally Face and sinus: No sinus tenderness Mouth: Normal oral and palatal mucosa present and tongue normal Teeth and gingiva: dentition normal and gingiva normal Throat: Yes posterior oropharynx normal, Yes tonsils normal and Yes uvula midline Eyes Conjunctivae: conjunctivae normal Sclerae: sclerae normal Pupils: Equal, round and reactive pupils present EOM: EOMs intact bilaterally Direct Ophthalmoscopy: No no photophobia Neck Neck: Yes no lymphadenopathy, No tender and Yes no JVD Thyroid: Thyroid normal Carotids: no bruits Chest Chest palpation & inspection: no tenderness Resp Effort & Inspection: normal respiratory effort, no audible wheezes, not labored and no stridor Auscultation: no crackles, no rales, no rhonchi and no wheezes Cardio Jugular venous distension: no JVD Rate: regular rate, not bradycardic and not tachycardic Rhythm: regular rhythm Bruits: no carotid bruits Peripheral pulses: Peripheral pulses 2+ throughout GI Inspection: Yes normal to inspection, No abdominal wall ecchymosis and No visible herniation Palpation (GI): Soft to palpation, nontender, no guarding, not rigid and No hepatosplenomegaly present Auscultation: normoactive bowel sounds General: Yes no CVA tenderness Back/Spine/Pelvis Back: no CVA tenderness and No back tenderness Cervical Spine: cervical ROM normal Thoracic/Lumbar Spine: thoracic and lumbar spine normal to inspection, straight leg raise negative bilaterally, No thoraco-lumbar ROM limited and No lumbar spinal tenderness Skin Lesions: no lesions Rashes: no rashes Wounds: no wounds Neuro General: oriented to person, oriented to place, patient oriented x3, CN's II-XI intact bilaterally and No confusion Cranial nerves: Yes Equal, round and reactive pupils present and Yes Normal accommodation reflex present Cognition (Neuro): normal cognition Speech: No Abnormal speech present Gait exam (Neuro): Normal gait present Motor exam (neuro): 5/5 motor strength present throughout Extrem Right upper extremity: full ROM; no cyanosis Left upper extremity: full ROM; no cyanosis Right lower extremity: no edema Left lower extremity: no edema Psych Appearance: grossly normal Mental Status: mental status grossly normal Affect: normal affect Attitude: cooperative Thought process: Normal thought process present Assessment and Plan Assessment & Plan (1) Annual physical exam: Code(s): Z00.00 - Encounter for general adult medical examination without abnormal findings (2) HTN (hypertension): Code(s): I10 - Essential (primary) hypertension Qualifiers: Hypertension type: essential hypertension Qualified Code(s): I10 - Essential (primary) hypertension Plan: Blood pressure remains elevated today in office. She does have an element of white coat hypertension. She promises to start monitoring her blood pressure at home. She has a very anxious person Continues on blood pressure readings at home. Goal blood pressures to be below 140/90 (3) Hypothyroidism: Code(s): E03.9 - Hypothyroidism, unspecified Qualifiers: Hypothyroidism type: unspecified Qualified Code(s): E03.9 - Hypothyroidism, unspecified Plan: Most recent TSH stable. Will continue her current dose of levothyroxine. (4) Type 2 diabetes mellitus: Code(s): E11.9 - Type 2 diabetes mellitus without complications Qualifiers: Diabetes mellitus technician terminal and repeater insulin use: without technician terminal and repeater use Diabetes mellitus complication status: with hyperglycemia Qualified Code(s): E11.65 - Type 2 diabetes mellitus with hyperglycemia Plan: Patient's type 2 diabetes well controlled. Most recent A1c is 7.2. Goal A1c is to be below 7.5 do patient's age and comorbidities. Orders: Orders Complete Blood Count no Diff 6 Months E11.65 - Type 2 diabetes mellitus with hyperglycemia Microalbumin, Random (w Creat) 6 Months I10 - Essential (primary) hypertension TSH reflex Free T4 6 Months E03.9 - Hypothyroidism, unspecified Comprehensive [place]. Panel Fast 6 Months E11.65 - Type 2 diabetes mellitus with hyperglycemia Patient Instructions: Goal: A1c to be below 7.5, blood pressure to be below 140/90 Barriers: Adherence to healthy eating habits and physical activity Coding Level of Care Code Est Pt Prev Care >65y(76407) Diagnoses Annual physical exam Z00.00 Essential hypertension I10 Hypertension type: essential hypertension Hypothyroidism, unspecified type E03.9 Hypothyroidism type: unspecified Type 2 diabetes mellitus with hyperglycemia, without long-term current use of insulin E11.65 Diabetes mellitus technician terminal and repeater insulin use: without detention use Diabetes mellitus complication status: with hyperglycemia Additional Codes EMERY-7 Assessment Billing - EMERY-7 Assessment Tool: EMERY-7 Assessment 82110 ([id number])
== END 2023-12-01 11:22 | disposition home or self-care (01) ==
PROVIDERS: Visit Provider Physician Assistant
DX: I10 Essential (primary) hypertension (principal); E03.9 Hypothyroidism, unspecified; E11.65 Type 2 diabetes mellitus with hyperglycemia
CPT/HCPCS: 99214

== ENCOUNTER 2024-11-30 10:21 | Outpatient (REF) | payer MEDICARE, SELFPAY ==
[2024-11-30 11:53] LABS: Hematocrit 37.5 % (37.0-47.0); Hemoglobin 12.7 g/dl (12.0-16.0); Mean Corpuscular HGB Conc 33.9 g/dl (31.0-35.0); Mean Corpuscular Hemoglobin 30.5 pg (27.0-33.0); Mean Corpuscular Volume 90.1 fL (80.0-98.0); Mean Platelet Volume 10.2 fL (9.4-12.3); Platelet Count 246 X10*3/uL (160-400); Red Blood Count 4.16 X10*6/uL (4.20-5.50); Red Cell Distribution Width 12.3 % (11.0-16.0); White Blood Count 6.5 X10*3/uL (4.8-10.8)
[2024-11-30 12:50] LABS: Alanine Aminotransferase 13 U/L (0-31); Albumin Level 4.3 g/dL (3.5-5.0); Alkaline Phosphatase 88 U/L (39-117); Anion Gap 12 (12-20); Aspartate Amino Transferase 16 U/L (5-31); Bilirubin Total 1.2 mg/dL (0.0-1.0); Blood Urea Nitrogen 33 mg/dL (9-16); Calcium 9.3 mg/dL (8.4-10.2); Carbon Dioxide 26 mmol/L (22-29); Chloride 102 mmol/L (96-108); Estimated Glomerular Filt Rate 49; Glucose Fasting 176 mg/dL (60-99); Potassium 4.5 mmol/L (3.3-5.1); Sodium 135 mmol/L (135-145); Total Protein 6.6 g/dL (6.5-8.0)
[2024-11-30 12:59] LABS: TSH reflex Free T4 2.43 uIU/mL (0.32-4.0)
[2024-11-30 13:06] LABS: Creatinine Urine 109.56 mg/dL; Microalbum/Creatinine Ratio Ur 8.2 ug/mg cr (<30)
== END 2024-11-30 10:22 | disposition home or self-care (01) ==
LOC: HO.LAB 10:21
PROVIDERS: PCP Physician Assistant; Visit Provider Physician Assistant
DX: E11.65 Type 2 diabetes mellitus with hyperglycemia (principal); E03.9 Hypothyroidism, unspecified; I10 Essential (primary) hypertension
CPT/HCPCS: 36415; 80053; 82043; 82570; 84443; 85027

== ENCOUNTER 2024-12-05 11:23 | Outpatient (AMB) | payer MEDICARE, SELFPAY ==
--- NOTE | 2024-12-05 11:31 | AM.OFFVISMDC ---
Intake Vital Signs 12/05/24 11:33 Height 5 ft Weight 175 lb 4 oz BMI 34.2 BP 132/74 Blood Pressure Location Rt brachial Position Sitting Pulse 78 Pulse Source Pulse Oximeter Temp 97.1 F Temp Source Temporal Artery Scan Pulse Oximetry (%) 97 Oxygen Delivery Method Room Air Intake Visit Reasons: AWV Intake Note: Patient is here for an Annual Wellness Visit. Song Plugger Required: No Metal Furniture Assembly Supervisor: Metal Furniture Assembly Supervisor Present and Metal Furniture Assembly Supervisor offered & declined Accompanied by: Spouse Allergies tramadol Allergy (Intermediate, Verified 12/05/24 11:46) Gastrointestinal Upset Medication List - Last Reconciled 12/05/24 by Senthil Isaac PA-C codeine-guaifenesin 10-100 mg/5 mL 5 mL PO Q6H PRN 5 days hydrochlorothiazide 25 mg PO DAILY 90 days ketorolac 0.5% 1 drp ophthalmic (eye) QID levothyroxine 25 mcg PO QAM losartan 25 mg PO DAILY 90 days metformin 1,000 mg PO BID metoprolol succinate ER 50 mg PO DAILY vitamins A,C,Y-lgki-etargu 2,148 mcg-113 mg-45 mg-17.4mg (PreserVision AREDS) 2 tabs PO BID HPI AWV HPI Details Deb is a 84 y/o F here today for an annual wellness visit. Pateint has a pmhx significant for Hypothyroidism, HLD, HTN, DMII Vaccine: Up-to-date with COVID vaccine, considering tetanus and shingles vaccine, needs PCV-20- though still considering . Today we discussed patient's [place] of care and comprehensive care plan which was scanned into patient's documents. Given a MOLST form today Colorectal cancer screening- no further Mammograms- no further HPI Comments History of Present Illness Details reviewed past medical history- yes reviewed surgical / hospitalization history- yes reviewed current medications- yes reviewed family history- yes home safety throw rugs? grab bars? raised toilet seat? working smoke detectors? activities of daily living difficulty bathing or showering? difficulty dressing? difficulty using the toilet? difficulty getting in and out of bed? difficulty walking? receives help from other person's with any of the above tasks? instrumental activities of daily living uses telephone - gets to place out of walking distance- go shopping for groceries- repairs own meals- does own minor home maintenance- does own laundry- does own housework- manages own money- currently takes medication- end of life planning discussed advanced directives- yes advanced directives on file? discussed wishes expressed in advanced directives. fall risk have you had any falls with injuries in the past year? have you had 2 or more falls in the past year? fall risk assessment: [facility] Medical History Fracture of shaft of left humerus Pulmonary nodule 1 cm or greater in diameter Herpes zoster Surgical History History of total abdominal hysterectomy and bilateral salpingo-oophorectomy Family History Father Medical history unknown Mother Medical history unknown Social History Housing: House Alcohol intake: current Alcohol intake frequency: 0-2 drinks per day Alcohol type: wine Patient Tobacco Use Status: Former Tobacco user Tobacco use type: Cigarette Years Smoked: 7 e-Cigarette/Vaping Use: Never Used Second Hand Smoke Exposure: No service: No Current occupational status: retired Current occupation: rt hand Cognitive needs: Yes (Pt has a cane and walker at home ) Hearing needs: Yes (Poor hearing loss. ) Vision needs: Yes (reading glasses) Questionnaire Medicare Wellness Checkup What is your age?: 80 or older What gender do you identify with?: female During the past 4 weeks, how much have you been bothered by emotional problems such as feeling anxious, depressed, irritable, sad or downhearted, and blue?: not at all During the past 4 weeks, has your physical & emotional health limited your social activities with family, friends, neighbors, or groups?: not at all During the past 4 weeks, how much bodily pain have you generally had?: no pain During the past 4 weeks, was someone available to help you if you needed & wanted help?: no, not at all During the past 4 weeks, what was the hardest physical activity you could do for at least 2 minutes?: moderate Can you get to places out of walking distance without help? (For eg., can you travel alone on buses, taxis or drive your car?): Yes Can you go shopping for groceries or clothes without someone's help?: Yes Can you prepare your own meals?: Yes Can you do your housework without help?: Yes Because of any health problems, do you need the help of another person with your personal care needs such as eating, bathing, dressing or getting around the house?: No Can you handle your own money without help?: Yes During the past 4 weeks, how would you rate your health in general?: very good During the past 4 weeks how have things been going for you?: very well; could hardly better Do you always fasten your seat belt when you are in a car?: yes, usually During past 4 weeks, have you been bothered by the following: never: Falling or dizzy when standing up, Sexual problems?, Trouble eating well?, Teeth or denture problems?, Problems using the telephone? and Tiredness or fatigue? Have you fallen 2 or more times in the past year?: No Are you afraid of falling?: No Are you a smoker?: no During the past 4 weeks, how many drinks of wine, beer, or other alcoholic beverages did you have?: 2-5 drinks per week Do you exercise for about 20 minutes 3 or more times a week?: yes, most of the time Have you been given information to help with the following?: no: Hazards in your house that might hurt you? and no: Keeping track of your medications? How often do you have trouble taking medicines the way you have been told to take them?: I always take medicine as prescribed How confident are you that you can control & manage most of your health problems?: very confident What is your race?: White Mini Mental State Exam (MMSE) Orientation What is the (year) (season) (date) (day) (month)?: year Where are we (state) (county) (town or city) (hospital) (floor)?: town or city Attention & Calculation (CHOOSE ONE) Spell WORLD backwards (DLROW): 5 letters Score Score: 7 Activity of Daily Living Bathing - sponge bath, tub bath or shower: receives no assistance (gets in/out by self, if usual bathing means Dressing - getting clothes from closets & drawers, including inner/outer garments & fasteners.: gets clothes & gets completely dressed without help Toileting - going to the 'toilet room' for urine/bowel elimination & cleaning self/arranging clothes: goes to toilet room, cleans self, arranges clothes without help Transfer: moves in & out of bed and chair without help (may use support object) Continence: controls urination/bowel movements completely by self Feeding: feeds self without help Total Score: 0 Information obtained from: patient Using telephone: independent Traveling: independent Shopping: independent Preparing meals: independent Housework: independent Taking medicine: independent Managing money: independent PHQ-9 Over the last 2 weeks, how often have you been bothered by any of the following problems? 1. Little interest or pleasure in doing things: not at all 2. Feeling down, depressed, or hopeless: not at all 3. Trouble falling or staying asleep, or sleeping too much: not at all 4. Feeling tired or having little energy: not at all 5. Poor appetite or overeating: not at all 6. Feeling bad about yourself - or that you are a failure or have let yourself or your family down: not at all 7. Trouble concentrating on things, such as reading the newspaper or watching television: not at all 8. Moving or speaking so slowly that other people could have noticed. Or the opposite - being so fidgety or restless that you have been moving around a lot more than usual: not at all 9. Thoughts that you would be better off or of hurting yourself in some way: not at all Total score: 0 Depression Screening Interpretation: Negative Depression Screening Done: Yes 64670 - PHQ-9 Billing: Yes Source: Developed by Drs. Rojelio Fontanez, Nancy León, Brendan Medina and colleagues, with an educational nelly from [employer]. EMERY-7 AMB Questionnaire EMERY-7 Date EMERY - 7 assessed: 12/05/24 Feeling nervous, anxious, or on edge: 0 = Not at all Not being able to stop or control worryin = Not at all Worrying too much about different things: 0 = Not at all Trouble relaxin = Not at all Being so restless that it is hard to sit still: 0 = Not at all Becoming easily annoyed or irritable: 0 = Not at all Feeling afraid as if something awful might happen: 0 = Not at all Total EMERY-7 score (0-4 normal; 5-9 mild; 10-14 moderate; 15-21 severe): 0 Source: Developed by Drs. Rojelio Fontanez, Nancy León, Brendan Medina and colleagues, with an educational nelly from [employer]. AUDIT C Alcohol Use Questionnaire (AUDIT-C) 1. How often do you have a drink containing alcohol?: 2-3 times a week 2. How many drinks containing alcohol do you have on a typical day when you are drinking?: 3 or 4 3. How often do you have six or more drinks on one occasion?: Never Total Score: 4 Thrive Questionnaire Date Thrive assessed: 12/05/24 I am a: Patient What is your living situation today?: I have a steady place to live Within the past 12 months, did the food you bought not last and you didn't have the money to get more?: Never true Within the past 12 months, did you worry whether your food would run out before you got money to buy more?: Never true Do you have trouble paying for medicines?: No Do you have trouble getting transportation to medical appointments?: No Do you have trouble paying your heating and electricity bill?: No Do you have trouble taking care of your child, family member or friend?: No Do you have trouble with day-to-day activities such as bathing, preparing meals, shopping, managing finances, etc.?: No Are you currently unemployed and looking for a job?: No Are you interested in more education?: No Please select the resources that you would like help with: None Currently or been in a relationship where the following occur: No concerns reported THRIVE Score: 0 Physical Exam Vital Signs: Last Vital Signs Temp 97.1 F 12/05/24 11:33 Pulse 78 12/05/24 11:33 BP 132/74 12/05/24 11:33 Pulse Ox 97 12/05/24 11:33 Oxygen Delivery Method Room Air 12/05/24 11:33 BMI result Body Mass Index 34.2 HEENT Other: hearing screening whisper test- Failed on left side Eyes Other: vision screening- 20 20 OS OD OU Other: urinary incontinence? no Neuro Other: balance Romberg- normal tandem walk test- able walk-in turned test- able rise from sit to stand- within 2 seconds Results AMB Hemoglobin A1c AMB Hemoglobin A1c 7.7 % Last Edit by VINCENT García on 12/05/24 11:47 Assessment & Plan Assessment & Plan (1) Annual wellness visit: Code(s): Z00.00 - Encounter for general adult medical examination without abnormal findings Plan: as per hpi Orders: Orders Comprehensive [place]. Panel Fast Today E11.65 - Type 2 diabetes mellitus with hyperglycemia TSH reflex Free T4 Today E03.9 - Hypothyroidism, unspecified AMB Hemoglobin A1c Today E11.65 - Type 2 diabetes mellitus with hyperglycemia Complete Blood Count no Diff Today E11.65 - Type 2 diabetes mellitus with hyperglycemia Microalbumin, Random (w Creat) Today E11.65 - Type 2 diabetes mellitus with hyperglycemia Medications: Refilled codeine-guaifenesin 10-100 mg/5 mL 5 mL PO Q6H 5 days PRN 120 mL 0RF cough Quality Reporting (2019) Depression/Bipolar (159/160/161/177) PHQ-9: Total score: 0 Coding Level of Care Code Medicare Subsequent (G0439) Diagnoses Annual wellness visit Z00.00 CPT Codes Advance Care Planning - Time spent: 1-15 minutes, not on file ([id number]) Additional Codes PHQ-9 - 67006 - PHQ-9 Billing: Yes ([id number]) Advance Care Planning Advance Care Planning discussion: Exists, not on file Date of discussion: 12/05/24 Forms completed: MOLST Time spent: 1-15 minutes, not on file Actual minutes spent: 2
[2024-12-05 11:33] VITALS: BP 132/74; PULSE 78; TEMP 36.2; O2SAT 97; BMI 34.2
== END 2024-12-05 12:09 | disposition home or self-care (01) ==
LOC: HO.HMCH 11:24
PROVIDERS: PCP Physician Assistant; Visit Provider Physician Assistant
DX: Z00.00 Encounter for general adult medical examination without abnormal findings (principal); E11.65 Type 2 diabetes mellitus with hyperglycemia

== ENCOUNTER → 2024-12-05 11:23 | Outpatient (BNVA) | payer MEDICARE, SELFPAY | PROVIDERS: PCP Physician Assistant; Visit Provider Physician Assistant | DX: Z00.00 Encounter for general adult medical examination without abnormal findings (principal); E11.65 Type 2 diabetes mellitus with hyperglycemia; Z87.891 Personal history of nicotine dependence | CPT/HCPCS: 83036; 96127 ==